=== PATIENT | male | born 1980 | race Caucasian/White ===

== ENCOUNTER 2019-06-01 13:46 | Emergency (ER) | payer MEDICAID ==
[~2019-06-01] VITALS: Ht 182.9 cm; Wt 127.3 kg
[~2019-06-01 13:46] MED LIST: BENZ2TAB10 PO; DIVA500T52 PO; DIVA500T69 PO; QUET200T PO; QUET300T2 PO
[2019-06-01 16:03] LABS: BASOPHILS % (AUTO) 0.5 % (0.0-2.0); EOSINOPHILS % (AUTO) 2.7 % (1.0-6.0); HEMATOCRIT 37.4 % (41-53); HEMOGLOBIN 12.7 g/dL (13.5-17.5); LYMPHOCYTES # (AUTO) 0.8 K/uL (1.0-4.8); LYMPHOCYTES % (AUTO) 15.7 % (22.0-44.0); MEAN CORPUSCULAR HEMOGLOBIN 28.9 pg (26.0-34.0); MEAN CORPUSCULAR VOLUME 85 fL (80-100); MONOCYTES # (AUTO) 0.6 K/uL (0.1-1.0); MONOCYTES % (AUTO) 10.9 % (2.0-9.0); NEUTROPHILS # (AUTO) 3.6 K/uL (1.8-7.7); NEUTROPHILS % (AUTO) 70.2 % (40.0-70.0); PLATELET COUNT (AUTO) 336 K/uL (150-450); RED BLOOD CELL COUNT(AUTO) 4.41 MIL/uL (4.50-5.90); RED CELL DISTRIBUTION WIDTH 13.5 % (11.5-14.5)
[2019-06-01 16:22] LABS: ANION GAP 9 mmol/L (8-16); CALCIUM, TOTAL 8.8 mg/dL (8.8-10.5); CARBON DIOXIDE 23 mmol/L (22-29); CHLORIDE 103 mmol/L (98-107); CREATININE 1.09 mg/dL (0.60-1.30); GLOMERULAR FILTR. RATE CALC > 60 mL/min (>60); GLUCOSE,RANDOM 120 mg/dL (70-110); POTASSIUM 3.6 mmol/L (3.5-5.1); SODIUM SERUM 135 mmol/L (136-145); UREA NITROGEN, BLOOD 10 mg/dL (7-18)
[2019-06-01 16:23] LABS: GLUCOSE,POINT OF CARE 108 MG/DL (70-110)
[2019-06-01 16:28] LABS: ALANINE AMINOTRANSFERASE 61 U/L (12-78); ALBUMIN 3.7 g/dL (3.4-5.0); ALKALINE PHOSPHATASE 71 U/L (46-116); ASPARTATE AMINOTRANSFERASE 36 U/L (15-37); BILIRUBIN,TOTAL 0.7 mg/dL (0.1-1.0); TOTAL PROTEIN, SERUM 7.1 g/dL (6.4-8.2)
[2019-06-01 20:01] VITALS: BP 132/82
== END 2019-06-01 20:36 | disposition home or self-care (01) ==
LOC: EMS 13:48
DX: F22 Delusional disorders (principal); F29 Unspecified psychosis not due to a substance or known physiological condition; F19.11 Other psychoactive substance abuse, in remission; F31.9 Bipolar disorder, unspecified; F20.9 Schizophrenia, unspecified; F17.210 Nicotine dependence, cigarettes, uncomplicated; Z59.0 Homelessness; Z88.0 Allergy status to penicillin
CPT/HCPCS: 80053; 82962; 85025; 99285; G0480

== ENCOUNTER 2019-11-13 09:07 | Inpatient (IN) | payer MEDICAID ==
[~2019-11-13] VITALS: Ht 182.9 cm; Wt 101.8 kg
[~2019-11-13 09:07] MED LIST changes: +DIVA-80 PO; -DIVA500T52 PO
[2019-11-13 10:21] LABS: AMPHET/METH SCREEN,URINE POSITIVE (NEGATIVE); BARBITURATE SCREEN, URINE NEGATIVE (NEGATIVE); BENZODIAZEPINES SCREEN,URINE NEGATIVE (NEGATIVE); CANNABINOID SCREEN,URINE NEGATIVE (NEGATIVE); COCAINE SCREEN,URINE NEGATIVE (NEGATIVE); METHADONE SCREEN, URINE NEGATIVE (NEGATIVE); OPIATE SCREEN,URINE NEGATIVE (NEGATIVE)
[2019-11-13 10:24] LABS: PHENCYCLIDINE SCREEN,URINE NEGATIVE (NEGATIVE)
[2019-11-13] MEDS ORDERED: LORazepam 2 MG/ML VIAL IM ONE (10:30)
[2019-11-13] MEDS ORDERED: HALOPERIDOL LACTATE 5 MG/ML VIAL IM ONE (10:30)
[2019-11-13] MEDS ORDERED: DiphenhydrAMINE HCL 50 MG/ML VIAL IM ONE (10:45)
[2019-11-13 10:57] LABS: BASOPHILS % (AUTO) 0.3 % (0.0-2.0); EOSINOPHILS % (AUTO) 5.4 % (1.0-6.0); HEMATOCRIT 36.8 % (41-53); HEMOGLOBIN 12.6 g/dL (13.5-17.5); LYMPHOCYTES # (AUTO) 0.8 K/uL (1.0-4.8); MEAN CORPUSCULAR HEMOGLOBIN 28.5 pg (26.0-34.0); MEAN CORPUSCULAR HGB CONC 34.3 G/dL (31.0-37.0); MEAN CORPUSCULAR VOLUME 83 fL (80-100); MONOCYTES # (AUTO) 0.5 K/uL (0.1-1.0); MONOCYTES % (AUTO) 7.2 % (2.0-9.0); NEUTROPHILS # (AUTO) 4.8 K/uL (1.8-7.7); NEUTROPHILS % (AUTO) 74.1 % (40.0-70.0); PLATELET COUNT (AUTO) 279 K/uL (150-450); RED BLOOD CELL COUNT(AUTO) 4.43 MIL/uL (4.50-5.90); RED CELL DISTRIBUTION WIDTH 15.5 % (11.5-14.5)
[2019-11-13 11:12] LABS: ANION GAP 8 mmol/L (8-16); CALCIUM, TOTAL 8.7 mg/dL (8.8-10.5); CARBON DIOXIDE 27 mmol/L (22-29); CHLORIDE 102 mmol/L (98-107); CREATININE 1.13 mg/dL (0.60-1.30); GLOMERULAR FILTR. RATE CALC > 60 mL/min (>60); GLUCOSE,RANDOM 88 mg/dL (70-110); POTASSIUM 3.5 mmol/L (3.5-5.1); SODIUM SERUM 137 mmol/L (136-145); UREA NITROGEN, BLOOD 13 mg/dL (7-18)
[2019-11-13 11:17] LABS: ALANINE AMINOTRANSFERASE 30 U/L (12-78); ALBUMIN 3.7 g/dL (3.4-5.0); ALKALINE PHOSPHATASE 67 U/L (46-116); ASPARTATE AMINOTRANSFERASE 26 U/L (15-37); BILIRUBIN,TOTAL 0.5 mg/dL (0.1-1.0); TOTAL PROTEIN, SERUM 7.2 g/dL (6.4-8.2)
[2019-11-13] MEDS ORDERED: ZOLPIDEM TARTRATE 10 MG TABLET PO PRN (11:45)
[2019-11-13 19:25] VITALS: BP 128/72
[2019-11-14 02:49] VITALS: BP 123/70
[2019-11-14 08:15] VITALS: BP 117/67
[2019-11-14] MEDS ORDERED: LOPERAMIDE HCL 2 MG CAPSULE PO PRN (08:30)
[2019-11-14] MEDS ORDERED: PETROLATUM,WHITE 28 GM JELLY TP PRN (08:30)
[2019-11-14] MEDS ORDERED: MAG HYDROX/AL HYDROX/SIMETH ES 30 ML SUSPENSION UDCUP PO PRN (08:30)
[2019-11-14] MEDS ORDERED: MAGNESIUM HYDROXIDE SUSPENSION 30 ML UDCUP PO PRN (08:30)
[2019-11-14] MEDS ORDERED: BACITRACIN 28.4 GM OINTMENT TP PRN (08:30)
[2019-11-14] MEDS ORDERED: CloNIDine HCL 0.1 MG TABLET PO PRN (08:30)
[2019-11-14] MEDS ORDERED: ALBUTEROL SULFATE HFA 90 MCG/PUFF 8 GM INHALER IH PRN (08:30)
[2019-11-14] MEDS ORDERED: DOCUSATE SODIUM 100 MG CAPSULE PO PRN (08:30)
[2019-11-14] MEDS ORDERED: BENZOCAINE/MENTHOL LOZENGE PO PRN (08:30)
[2019-11-14] MEDS ORDERED: ACETAMINOPHEN 325 MG TABLET PO PRN (08:30)
[2019-11-14] MEDS ORDERED: ONDANSETRON HCL 4 MG TABLET PO PRN (08:30)
[2019-11-14] MEDS ORDERED: OMEPRAZOLE 20 MG CAPSULE PO PRN (08:30)
[2019-11-14] MEDS: DIVALPROEX SODIUM 500 MG DR TABLET PO SCH ×2 (10:40→20:44)
[2019-11-14 16:17] VITALS: BP 138/74
[2019-11-14] MEDS: LORazepam 2 MG TABLET PO PRN (16:27)
[2019-11-14] MEDS: IBUPROFEN 600 MG TABLET PO PRN ×2 (16:27→22:43)
[2019-11-14] MEDS: QUEtiapine FUMARATE 200 MG TABLET PO SCH (20:44)
[2019-11-15 04:06] VITALS: BP 126/82
[2019-11-15] MEDS: DIVALPROEX SODIUM 500 MG DR TABLET PO SCH ×2 (08:20→20:13)
[2019-11-15] MEDS: LORazepam 2 MG TABLET PO PRN (08:20)
[2019-11-15] MEDS: IBUPROFEN 600 MG TABLET PO PRN (13:08)
[2019-11-15] MEDS ORDERED: HALOPERIDOL LACTATE 5 MG/ML VIAL ONE (15:38)
[2019-11-15] MEDS ORDERED: LORazepam 2 MG/ML VIAL ONE (15:38)
[2019-11-15] MEDS ORDERED: DiphenhydrAMINE HCL 50 MG/ML VIAL ONE (15:39)
[2019-11-15] MEDS ORDERED: LORazepam 2 MG/ML VIAL IM ONE (15:55)
[2019-11-15] MEDS ORDERED: DiphenhydrAMINE HCL 50 MG/ML VIAL IM ONE (15:55)
[2019-11-15] MEDS ORDERED: HALOPERIDOL LACTATE 5 MG/ML VIAL IM ONE (15:55)
[2019-11-15 16:14] VITALS: BP 126/68
[2019-11-15] MEDS: QUEtiapine FUMARATE 200 MG TABLET PO SCH (20:13)
[2019-11-16] MEDS: DIVALPROEX SODIUM 500 MG DR TABLET PO SCH ×2 (08:47→20:10)
[2019-11-16 09:21] VITALS: BP 119/72
[2019-11-16] MEDS: LORazepam 2 MG TABLET PO PRN ×2 (10:32→16:47)
[2019-11-16] MEDS: HALOPERIDOL 5 MG TABLET PO PRN ×2 (10:32→16:47)
[2019-11-16 16:11] VITALS: BP 134/86
[2019-11-16] MEDS: QUEtiapine FUMARATE 200 MG TABLET PO SCH (20:09)
[2019-11-17 03:09] VITALS: BP 126/81
[2019-11-17] MEDS: DIVALPROEX SODIUM 500 MG DR TABLET PO SCH ×2 (08:33→20:12)
[2019-11-17 08:36] VITALS: BP 123/60
[2019-11-17 16:07] VITALS: BP 164/70
[2019-11-17] MEDS: QUEtiapine FUMARATE 200 MG TABLET PO SCH (20:12)
[2019-11-18] MEDS: IBUPROFEN 600 MG TABLET PO PRN ×2 (01:27→17:08)
[2019-11-18 01:28] VITALS: BP 119/83
[2019-11-18 08:27] VITALS: BP 98/61
[2019-11-18] MEDS: DIVALPROEX SODIUM 500 MG DR TABLET PO SCH ×2 (08:31→20:46)
[2019-11-18 16:19] VITALS: BP 128/93
[2019-11-18] MEDS: QUEtiapine FUMARATE 200 MG TABLET PO SCH (20:46)
[2019-11-19 02:36] VITALS: BP 112/75
[2019-11-19] MEDS: IBUPROFEN 600 MG TABLET PO PRN (02:39)
[2019-11-19] MEDS: DIVALPROEX SODIUM 500 MG DR TABLET PO SCH (08:09)
[2019-11-19 08:21] VITALS: BP 117/82
[2019-11-19] MEDS ORDERED: DIVA-112 PO (16:01)
== END 2019-11-19 16:50 | disposition home or self-care (01) | DRG 750 ==
LOC: EMS 09:11 → B3A 11:36 → UNDOADMIN 15:18 → B3A 15:18 → EMS 16:40 → B3A 11-14 10:58
PROVIDERS: ADMIT Psychiatry & Neurology Child & Adolescent Psychiatry; ATTEND Psychiatry & Neurology Child & Adolescent Psychiatry
DX: F25.0 Schizoaffective disorder, bipolar type (principal); F17.210 Nicotine dependence, cigarettes, uncomplicated; F15.10 Other stimulant abuse, uncomplicated; F41.9 Anxiety disorder, unspecified; R45.851 Suicidal ideations; X58.XXXA Exposure to other specified factors, initial encounter; K59.00 Constipation, unspecified; K21.9 Gastro-esophageal reflux disease without esophagitis; G47.00 Insomnia, unspecified; S01.21XA Laceration without foreign body of nose, initial encounter; Z53.20 Procedure and treatment not carried out because of patient's decision for unspecified reasons; Z59.0 Homelessness; Z78.1 Physical restraint status; Z88.0 Allergy status to penicillin; Z79.899 Other long term (current) drug therapy; Y93.89 Activity, other specified; Y92.89 Other specified places as the place of occurrence of the external cause; Y99.8 Other external cause status
CPT/HCPCS: G0480; J1200; J1630; J2060

== ENCOUNTER 2020-11-07 21:24 | Emergency (ER) | payer MEDICAID ==
[~2020-11-07] VITALS: Ht 182.9 cm; Wt 122.7 kg
[~2020-11-07 21:24] MED LIST changes: -BENZ2TAB10 PO; +DIVA-112 PO; -DIVA-80 PO; -DIVA500T69 PO; -QUET300T2 PO
[2020-11-07 23:14] LABS: COVID AG,FIA SOURCE NASOPHARYNGEAL
[2020-11-08 00:43] VITALS: BP 118/75
== END 2020-11-08 00:43 | disposition home or self-care (01) ==
LOC: EMS 21:27
DX: Z20.822 Contact with and (suspected) exposure to COVID-19 (principal); F31.9 Bipolar disorder, unspecified; F20.9 Schizophrenia, unspecified; F17.210 Nicotine dependence, cigarettes, uncomplicated; Z59.0 Homelessness; Z88.0 Allergy status to penicillin
CPT/HCPCS: 87426; 99283; U0003

== ENCOUNTER 2022-12-17 21:19 | Emergency (ER) | payer MEDICAID ==
[~2022-12-17] VITALS: Ht 177.8 cm; Wt 105.0 kg
[2022-12-17 21:47] VITALS: BP 140/75; PULSE 92; RESP 16; TEMP 98
== END 2022-12-17 22:59 | disposition left against medical advice (07) ==
LOC: EMS 21:19
DX: R51.9 Headache, unspecified (principal); Z53.21 Procedure and treatment not carried out due to patient leaving prior to being seen by health care provider
CPT/HCPCS: 99281; Z7502

== ENCOUNTER 2024-01-06 08:22 | Inpatient (IN) | payer MEDICAID, OTHER ==
[~2024-01-06] VITALS: Ht 177.8 cm; Wt 94.6 kg
[2024-01-06 08:39] LABS: COVID AG,FIA SOURCE NASAL SWAB
[2024-01-06] MEDS: HALOPERIDOL LACTATE 5 MG/ML VIAL IM ONE (08:43)
[2024-01-06] MEDS: DiphenhydrAMINE HCL 50 MG/ML VIAL IM ONE (08:43)
[2024-01-06] MEDS: LORazepam 2 MG/ML VIAL IM ONE (08:43)
[2024-01-06 08:58] LABS: SARS-COV2 (COVID) ANTIGEN,FIA Negative (Negative)
[2024-01-06] MEDS ORDERED: ZOLPIDEM TARTRATE 10 MG TABLET PO PRN (09:45)
[2024-01-06 10:00] LABS: BASOPHILS % (AUTO) 0.3 % (0.0-2.0); EOSINOPHILS % (AUTO) 3.3 % (1.0-6.0); HEMOGLOBIN 13.3 g/dL (13.5-17.5); LYMPHOCYTES # (AUTO) 0.9 K/uL (1.0-4.8); MEAN CORPUSCULAR VOLUME 88 fL (80-100); MONOCYTES # (AUTO) 0.5 K/uL (0.1-1.0); MONOCYTES % (AUTO) 10.2 % (2.0-9.0); NEUTROPHILS # (AUTO) 3.8 K/uL (1.8-7.7); NEUTROPHILS % (AUTO) 70.2 % (40.0-70.0); PLATELET COUNT (AUTO) 277 K/uL (150-450); RED BLOOD CELL COUNT(AUTO) 4.43 MIL/uL (4.50-5.90); RED CELL DISTRIBUTION WIDTH 13.5 % (11.5-14.5); WHITE BLOOD COUNT (AUTO) 5.3 K/uL (4.5-11.0)
[2024-01-06 10:10] LABS: ANION GAP 7 mmol/L (8-16); CALCIUM, TOTAL 8.5 mg/dL (8.8-10.5); CARBON DIOXIDE 30 mmol/L (22-29); CHLORIDE 101 mmol/L (98-107); CREATININE 1.03 mg/dL (0.60-1.30); GLOMERULAR FILTR. RATE CALC > 60 mL/min (>60); GLUCOSE,RANDOM 94 mg/dL (70-110); POTASSIUM 3.5 mmol/L (3.5-5.1); SODIUM SERUM 138 mmol/L (136-145); UREA NITROGEN, BLOOD 15 mg/dL (7-18)
[2024-01-06 10:19] LABS: ALCOHOL, BLOOD (SERUM) < 3 mg/dL (0-10)
[2024-01-06 10:35] LABS: VALPROIC ACID < 3 mcg/mL (50-100)
[2024-01-06 17:38] VITALS: O2SAT 99
[2024-01-06 18:35] VITALS: BP 131/74; PULSE 74; RESP 18; TEMP 97.3; O2SAT 98
[2024-01-06 20:10] VITALS: BP 97/41; PULSE 61; RESP 18; TEMP 97.5; O2SAT 99
[2024-01-06] MEDS ORDERED: INFLUENZA VIRUS VACCINE TVS (6MO+) 2024-25/PF 45 MCG/0.5 ML SYRINGE IM. ONE (22:15)
[2024-01-06 22:36] VITALS: BP 112/60; PULSE 77; RESP 16; TEMP 97.3; O2SAT 100
[2024-01-07] MEDS ORDERED: ALBUTEROL SULFATE HFA 90 MCG/PUFF 8 GM INHALER IH PRN (07:00)
[2024-01-07] MEDS ORDERED: GuaiFENesin/D-METHORPHAN [SUGAR-FREE] 200-20MG/10 ML SYRUP UDCUP PO PRN (07:00)
[2024-01-07] MEDS ORDERED: ONDANSETRON 4 MG TABLET PO PRN (07:00)
[2024-01-07] MEDS ORDERED: NICOTINE 14 MG/24 HOUR PATCH TD PRN (07:00)
[2024-01-07] MEDS ORDERED: ACETAMINOPHEN 325 MG TABLET PO PRN (07:00)
[2024-01-07] MEDS ORDERED: MAGNESIUM HYDROXIDE SUSPENSION 30 ML UDCUP PO PRN (07:00)
[2024-01-07] MEDS ORDERED: PETROLATUM,WHITE 28 GM JELLY TP PRN (07:00)
[2024-01-07] MEDS ORDERED: CloNIDine HCL 0.1 MG TABLET PO PRN (07:00)
[2024-01-07] MEDS ORDERED: DOCUSATE SODIUM 100 MG CAPSULE PO PRN (07:00)
[2024-01-07] MEDS ORDERED: MAG HYDROX/ALUMINUM HYD/SIMETH ES 30 ML SUSPENSION UDCUP PO PRN (07:00)
[2024-01-07] MEDS ORDERED: LOPERAMIDE HCL 2 MG CAPSULE PO PRN (07:00)
[2024-01-07 08:26] VITALS: BP 116/51; PULSE 80; RESP 18; TEMP 97; O2SAT 98
[2024-01-07] MEDS: BACITRACIN 28 GM OINTMENT TP SCH (09:04)
[2024-01-07] MEDS: HALOPERIDOL 5 MG TABLET PO PRN (10:14)
[2024-01-07] MEDS: LORazepam 2 MG TABLET PO PRN (10:14)
[2024-01-07] MEDS: DIVALPROEX SODIUM 500 MG DR TABLET PO SCH (11:22)
[2024-01-07 20:06] VITALS: BP 132/79; PULSE 88; RESP 18; TEMP 97.6
[2024-01-07] MEDS: QUEtiapine FUMARATE 200 MG TABLET PO SCH (20:24)
[2024-01-08 08:29] VITALS: RESP 15
[2024-01-08 08:36] LABS: BASOPHILS % (AUTO) 0.4 % (0.0-2.0); EOSINOPHILS % (AUTO) 1.7 % (1.0-6.0); HEMATOCRIT 38.7 % (41-53); HEMOGLOBIN 13.2 g/dL (13.5-17.5); LYMPHOCYTES # (AUTO) 0.9 K/uL (1.0-4.8); MEAN CORPUSCULAR HEMOGLOBIN 30.2 pg (26.0-34.0); MEAN CORPUSCULAR HGB CONC 34.1 G/dL (31.0-37.0); MEAN CORPUSCULAR VOLUME 89 fL (80-100); MONOCYTES # (AUTO) 0.4 K/uL (0.1-1.0); NEUTROPHILS # (AUTO) 4.8 K/uL (1.8-7.7); NEUTROPHILS % (AUTO) 76.9 % (40.0-70.0); PLATELET COUNT (AUTO) 252 K/uL (150-450); RED BLOOD CELL COUNT(AUTO) 4.37 MIL/uL (4.50-5.90); RED CELL DISTRIBUTION WIDTH 13.6 % (11.5-14.5); WHITE BLOOD COUNT (AUTO) 6.3 K/uL (4.5-11.0)
[2024-01-08 09:04] LABS: HEMOGLOBIN A1C 5.5 % (3.8-5.6)
[2024-01-08 09:13] LABS: ALANINE AMINOTRANSFERASE 22 U/L (12-78); ALBUMIN 2.9 g/dL (3.4-5.0); ALKALINE PHOSPHATASE 75 U/L (46-116); ANION GAP 7 mmol/L (8-16); ASPARTATE AMINOTRANSFERASE 20 U/L (15-37); BILIRUBIN,TOTAL 0.4 mg/dL (0.1-1.0); CALCIUM, TOTAL 8.9 mg/dL (8.8-10.5); CARBON DIOXIDE 26 mmol/L (22-29); CHLORIDE 102 mmol/L (98-107); CHOL/HDL RATIO 3.3 (4.2-7.3); CHOLESTEROL 135 mg/dL (131-200); CREATININE 0.79 mg/dL (0.60-1.30); GLOMERULAR FILTR. RATE CALC > 60 mL/min (>60); GLUCOSE,RANDOM 109 mg/dL (70-110); HDL CHOLESTEROL 41 mg/dL (40-60); LDL CHOL (CALC.) 78 mg/dL (0-130); POTASSIUM 3.9 mmol/L (3.5-5.1); SODIUM SERUM 135 mmol/L (136-145); THYROID STIMULATING HORMONE 1.28 uIU/mL (0.36-3.74); TRIGLYCERIDES 80 mg/dL (15-150); UREA NITROGEN, BLOOD 11 mg/dL (7-18)
[2024-01-08 14:19] VITALS: RESP 18
[2024-01-08] MEDS: IBUPROFEN 400 MG TABLET PO PRN (14:19)
[2024-01-09 08:01] VITALS: BP 114/64; PULSE 64; RESP 18; TEMP 98.6; O2SAT 99
[2024-01-09 20:08] VITALS: BP 105/64; PULSE 97; RESP 17; TEMP 98.6; O2SAT 99
[2024-01-10 08:26] VITALS: RESP 18
[2024-01-10 09:46] LABS: APPEARANCE,URINE CLEAR (CLEAR); BILIRUBIN,URINE NEGATIVE (NEGATIVE); COLOR,URINE LIGHT YELLOW (YELLOW); GLUCOSE, URINE (UA) NEGATIVE (NEGATIVE); KETONES,URINE TRACE mg/dL (NEGATIVE); LEUKOCYTE ESTERASE ,URINE NEGATIVE (NEGATIVE); NITRATE,URINE NEGATIVE (NEGATIVE); OCCULT BLOOD,URINE NEGATIVE (NEGATIVE); PH,URINE 7.5 (5.0-8.0); PH,URINE DRUG SCREEN 7.5 (5.0-8.0); PROTEIN,URINE NEGATIVE (NEGATIVE); SPECIFIC GRAVITIY, URINE 1.019 (1.003-1.030); UROBILINOGEN,URINE <=1.0 mg/dL (<=1.0)
[2024-01-10 09:52] LABS: ALCOHOL, URINE DRUG SCREEN NEGATIVE (NEGATIVE); AMPHET/METH SCREEN,URINE POSITIVE (NEGATIVE); BARBITURATE SCREEN, URINE NEGATIVE (NEGATIVE); BENZODIAZEPINES SCREEN,URINE NEGATIVE (NEGATIVE); CANNABINOID SCREEN,URINE NEGATIVE (NEGATIVE); COCAINE SCREEN,URINE NEGATIVE (NEGATIVE); METHADONE SCREEN, URINE NEGATIVE (NEGATIVE); OPIATE SCREEN,URINE NEGATIVE (NEGATIVE); PHENCYCLIDINE SCREEN,URINE NEGATIVE (NEGATIVE)
[2024-01-10 23:23] VITALS: RESP 18
[2024-01-11 08:52] VITALS: BP 135/63; PULSE 83; RESP 20; TEMP 97.7; O2SAT 100
[2024-01-11] MEDS: ZOLPIDEM TARTRATE 10 MG TABLET PO PRN (20:22)
[2024-01-11] MEDS: SULFAMETHOX/TRIMETH DS 800-160 MG/TABLET PO SCH (20:22)
[2024-01-11 20:45] VITALS: BP 126/77; PULSE 84; RESP 18; TEMP 97.8
[2024-01-12] MEDS: MetFORMIN HCL 500 MG TABLET PO SCH (06:38)
[2024-01-12 07:00] LABS: GLUCOMETER DEV NAME(LOC) BV3N.2; GLUCOSE,POINT OF CARE 123 MG/DL (70-110)
[2024-01-12 07:00] LABS: GLUCOMETER DEV NAME(LOC) BV3N.2; GLUCOSE,POINT OF CARE 101 MG/DL (70-110)
[2024-01-12 08:10] VITALS: BP 110/64; PULSE 86; RESP 17; TEMP 97.7; O2SAT 99
[2024-01-13 08:06] VITALS: BP 102/60; PULSE 80; RESP 17; TEMP 97.9; O2SAT 97
[2024-01-13 16:21] LABS: GLUCOMETER DEV NAME(LOC) BV3N.2; GLUCOSE,POINT OF CARE 118 MG/DL (70-110)
[2024-01-13 21:00] VITALS: BP 105/60; PULSE 80; RESP 18; TEMP 98.2; O2SAT 99
[2024-01-14 08:04] VITALS: BP 111/60; PULSE 68; RESP 17; TEMP 97.8; O2SAT 95
[2024-01-14 16:50] LABS: GLUCOMETER DEV NAME(LOC) BV3N.2; GLUCOSE,POINT OF CARE 102 MG/DL (70-110)
[2024-01-14 20:15] VITALS: BP 116/72; PULSE 71; RESP 17; TEMP 98; O2SAT 97
[2024-01-15 07:05] LABS: GLUCOMETER DEV NAME(LOC) BV3N.2; GLUCOSE,POINT OF CARE 107 MG/DL (70-110)
[2024-01-15 08:12] VITALS: RESP 16
== END 2024-01-15 16:25 | disposition left against medical advice (07) | DRG 750 ==
LOC: EMS 08:22 → B3A 18:11 → EMS 18:11 → B3A 19:02
PROVIDERS: ADMIT Psychiatry & Neurology Child & Adolescent Psychiatry; ATTEND Psychiatry & Neurology Child & Adolescent Psychiatry
PROC: GZHZZZZ Group Psychotherapy (ICD-10-PCS; principal; 2024-01-07)
PROC: GZ58ZZZ Individual Psychotherapy, Cognitive-Behavioral (ICD-10-PCS; 2024-01-07)
PROC: GZ56ZZZ Individual Psychotherapy, Supportive (ICD-10-PCS; 2024-01-07)
DX: F25.0 Schizoaffective disorder, bipolar type (principal); D64.9 Anemia, unspecified; F15.10 Other stimulant abuse, uncomplicated; I10 Essential (primary) hypertension; Z20.822 Contact with and (suspected) exposure to COVID-19; Z53.29 Procedure and treatment not carried out because of patient's decision for other reasons; F10.20 Alcohol dependence, uncomplicated; Y90.9 Presence of alcohol in blood, level not specified; Z91.83 Wandering in diseases classified elsewhere; Z78.1 Physical restraint status; Z87.891 Personal history of nicotine dependence; Z88.0 Allergy status to penicillin; Z59.00 Homelessness unspecified
CPT/HCPCS: 80048; 80053; 80061; 80164; 80307; 81003; 82962; 83036; 84443; 85025; G0480; J1200; J1630; J2060